=== PATIENT | female | born 2000 | race Caucasian/White ===

== ENCOUNTER 2018-05-11 12:41 | Observation (INO) | payer OTHER ==
[~2018-05-11] VITALS: Ht 175.3 cm; Wt 104.3 kg
[2018-05-11] VITALS (10 sets, daily range): BP systolic 120–141; BP diastolic 55–76
[2018-05-11] MEDS ORDERED: PENICILLIN V P500 MG PO (12:57)
[2018-05-11] MEDS ORDERED: NORCO 5-325 TA1 EACH PO (12:57)
[2018-05-11 13:53] LABS: ABSOLUTE NEUTROPHILS 17.1 thou/uL (1.4-8.2); BASOPHILS 0.1 % (0.0-2.0); EOSINOPHILS 0.1 % (0.0-3.0); HEMATOCRIT 47.7 % (37.0-47.0); HEMOGLOBIN 15.3 gm/dL (12.0-15.0); LYMPHOCYTES 2.2 % (24.0-44.0); MCH 27.2 pg (26.0-34.0); MCV 84.9 fL (80.0-100.0); MONOCYTES 2.9 % (1.0-8.0); PLATELET COUNT 273 thou/uL (150-400); POLYS 94.7 % (36.0-66.0); RBC 5.63 mil/uL (4.20-5.00); RDW 13.8 % (10.5-14.5); WBC 18.1 thou/uL (4.0-11.0)
[2018-05-11 14:01] LABS: POTASSIUM 4.4 mmol/L (3.5-5.1)
[2018-05-11 14:07] LABS: CALCIUM 9.4 mg/dL (8.5-10.1)
[2018-05-11 14:36] LABS: URINE BILIRUBIN NEGATIVE (Negative); URINE BLOOD TRACE (Negative); URINE CLARITY SL HAZY; URINE COLOR YELLOW; URINE GLUCOSE-RANDOM* NEGATIVE (Negative); URINE KETONES TRACE (Negative); URINE NITRITE-REFLEX NEGATIVE (Negative); URINE PROTEIN (DIPSTICK) NEGATIVE (Negative); URINE SPECIFIC GRAVITY 1.025 (1.005-1.035)
[2018-05-11 14:37] LABS: URINE LEUKOCYTES-REFLEX NEGATIVE (Negative); URINE UROBILINOGEN 0.2 E.U./dl (0.2-1.0)
[2018-05-11 14:53] LABS: BE(vivo) -7.9 mmol/L (-2 to +3); HCO3 17.4 mmol/L (22.0-26.0); PCO2 VENOUS 34.7 mmHg (41.0-51.0); PO2 VENOUS 43.4 mmHg (35.0-45.0)
[2018-05-11 21:01] LABS: CALCIUM 8.3 mg/dL (8.5-10.1); CREATININE 0.7 mg/dL (0.6-1.0); POTASSIUM 3.8 mmol/L (3.5-5.1)
[2018-05-11 21:23] LABS: CALCIUM 8.3 mg/dL (8.5-10.1); CREATININE 0.7 mg/dL (0.6-1.0); POTASSIUM 3.8 mmol/L (3.5-5.1)
[2018-05-12] VITALS (13 sets, daily range): BP systolic 120–145; BP diastolic 56–77
[2018-05-12 05:23] LABS: HEMATOCRIT 33.7 % (37.0-47.0); MCH 27.9 pg (26.0-34.0); MCHC 32.6 g/dL (28.0-37.0); MCV 85.8 fL (80.0-100.0); RBC 3.93 mil/uL (4.20-5.00); RDW 13.7 % (10.5-14.5); WBC 9.6 thou/uL (4.0-11.0)
[2018-05-12 05:28] LABS: CALCIUM 8.3 mg/dL (8.5-10.1); CREATININE 0.8 mg/dL (0.6-1.0); POTASSIUM 4.2 mmol/L (3.5-5.1)
--- NOTE | 2018-05-12 05:31 | NUR ---
Admission history and assessments completed. Careplan initiated. Progressing well towards discharge goals. Adequate pain control with Hydrocodone. Vital signs and rhythm stable. IVFluids infusing. Blood sugars within normal levels. Dietary and socoal services consulted for new onset diabetes.
--- NOTE | 2018-05-12 06:16 | NUR ---
Patient c/o feeling hungry, no nausea, saltine crackers given and tolerated well. Was able to void per BSC earlier, now states she is unable to void, has no urge to go. Attempted BSC and bathroom, faucet running water.No void. Will try again later.
[2018-05-12] MEDS ORDERED: CLEOCIN HCL150 MG PO (09:00)
--- NOTE | 2018-05-12 13:32 | NUR ---
AOX4, DENIES SOA. PAIN REPORTED BY PATIENT PARTIALLY MANAGED WITH MEDICATION. UP INDEPENDENT WITH STEADY BALANCED GAIT. USING TOILET IN ROOM. BLOOD GLUCOSE EDUCATION PROVIDED TO PATIENT WITH PRESCRIPTIONS & DISCHARGE PACKET. PATIENT ACCURATELY VERBALIZES UNDERSTANDING OF EDUCATION. PATIENT DENIES ANY FURTHER QUESTIONS OR CONCERNS. DISCHARGED HOME TO SELF CARE. LEFT VIA PRIVATE VEHICLE WITH HER MOTHER.
--- NOTE | 2018-05-12 21:57 | EKG ---
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
[2018-05-12 23:09] LABS: GLYCOHEMOGLOBIN (HGB A1C) 5.3 % (4.8-5.6)
== END 2018-05-12 12:50 | disposition home or self-care (01) ==
LOC: ER 12:41 → ICU 16:11 → EROBS 16:11 → ICU 18:32
PROVIDERS: Physician Assistant; ADMIT Internal Medicine
DX: T36.0X5A Adverse effect of penicillins, initial encounter (principal); E11.65 Type 2 diabetes mellitus with hyperglycemia; E11.10 Type 2 diabetes mellitus with ketoacidosis without coma; K02.9 Dental caries, unspecified; R11.2 Nausea with vomiting, unspecified; Y92.89 Other specified places as the place of occurrence of the external cause; Z72.89 Other problems related to lifestyle; Z79.899 Other long term (current) drug therapy; Z87.891 Personal history of nicotine dependence; Z88.0 Allergy status to penicillin
CPT/HCPCS: 10078; 88013; 88016; 88017

== ENCOUNTER 2018-09-12 23:40 | Emergency (ER) | payer OTHER ==
[~2018-09-12] VITALS: Ht 175.3 cm; Wt 104.3 kg
[~2018-09-12 23:40] MED LIST: CLEOCIN HCL150 MG PO; NORCO 5-325 TA1 EACH PO; PENICILLIN V P500 MG PO
[2018-09-12] MEDS ORDERED: UNICOMPLEX M TA1 TA1 PO (23:54)
[2018-09-13 00:13] LABS: HEMATOCRIT 38.1 % (37.0-47.0); HEMOGLOBIN 12.7 gm/dL (12.0-15.0); MCH 27.9 pg (26.0-34.0); MCHC 33.3 g/dL (28.0-37.0); MCV 83.9 fL (80.0-100.0); RBC 4.54 mil/uL (4.20-5.00); WBC 11.9 thou/uL (4.0-11.0)
[2018-09-13] MEDS ORDERED: PROVERA10 MG PO (00:37)
[2018-09-13] MEDS ORDERED: NAPROSYN500 MG PO (00:37)
[2018-09-13 01:02] VITALS: BP 123/72
== END 2018-09-13 01:03 | disposition home or self-care (01) ==
LOC: ER 23:40
PROVIDERS: Emergency Medicine
DX: N94.6 Dysmenorrhea, unspecified (principal); N93.8 Other specified abnormal uterine and vaginal bleeding; M54.5 Low back pain; Z87.891 Personal history of nicotine dependence

== ENCOUNTER 2018-12-03 05:58 | Emergency (ER) | payer OTHER ==
[~2018-12-03] VITALS: Ht 177.8 cm; Wt 102.1 kg
[~2018-12-03 05:58] MED LIST changes: +NAPROSYN500 MG PO; +PROVERA10 MG PO; +UNICOMPLEX M TA1 TA1 PO
[2018-12-03 06:07] VITALS: BP 116/67
[2018-12-03] MEDS ORDERED: MAPAP500 MG PO (06:12)
[2018-12-03] MEDS ORDERED: TRAMADOL 50 MG50 MG PO (07:10)
[2018-12-03] MEDS ORDERED: ZOFRAN4 MG PO (07:10)
[2018-12-03] MEDS ORDERED: KEFLEX500 M1 PO (07:10)
== END 2018-12-03 07:13 | disposition home or self-care (01) ==
LOC: ER 05:58
DX: K03.81 Cracked tooth (principal); E28.2 Polycystic ovarian syndrome; Z88.0 Allergy status to penicillin; Z87.891 Personal history of nicotine dependence